=== PATIENT | female | born 1990 | race Hispanic/Latino ===

== ENCOUNTER → 2021-01-12 | Outpatient (CLI) | payer OTHER | END | disposition home or self-care (01) | LOC: OIH 09:29 | PROVIDERS: ATTEND Family Medicine | DX: M17.11 Unilateral primary osteoarthritis, right knee (principal) | CPT/HCPCS: 73560 ==

== ENCOUNTER 2021-09-19 11:57 | Emergency (ER) | payer OTHER ==
[~2021-09-19] VITALS: Ht 157.5 cm; Wt 109.8 kg
[2021-09-19 13:22] VITALS: BP 160/86
[2021-09-19 13:27] LABS: BASOPHILS % (AUTO) 0.4 % (0.0-5.0); HEMATOCRIT 41.2 % (36-48); LYMPHOCYTES % (AUTO) 25.4 % (21.0-51.0); MEAN CORPUSCULAR HEMOGLOBIN 26.5 pg (27.0-33.0); MEAN CORPUSCULAR HGB CONC 31.3 g/dL (32.0-36.0); MEAN CORPUSCULAR VOLUME 84.8 fL (79-99); MONOCYTES % (AUTO) 5.2 % (3.0-13.0); NEUTROPHILS % (AUTO) 67.7 % (40.0-77.0); PLATELET COUNT (AUTO) 351 K/uL (130-400); RED BLOOD CELL COUNT(AUTO) 4.86 MIL/uL (4.00-5.50); RED CELL DISTRIBUTION WIDTH 15.3 % (11.0-15.5); WHITE BLOOD COUNT (AUTO) 11.2 K/uL (4.8-10.8)
[2021-09-19 13:38] LABS: CREATININE 0.6 mg/dL (0.5-1.5); POTASSIUM 3.9 mmol/L (3.5-5.1)
[2021-09-19 13:39] LABS: APPEARANCE,URINE Clear (CLEAR); BILIRUBIN,URINE Moderate (NEGATIVE); COLOR,URINE Dark Yellow (YELLOW); GLUCOSE, URINE (UA) Negative (NEGATIVE); KETONES,URINE >=160 mg/dL (NEGATIVE); LEUKOCYTE ESTERASE ,URINE Trace (NEGATIVE); NITRATE,URINE Negative (NEGATIVE); OCCULT BLOOD,URINE Negative (NEGATIVE); PROTEIN,URINE POS 1+ mg/dL (NEGATIVE)
[2021-09-19 13:42] LABS: ALBUMIN 3.7 g/dL (3.5-5.0); BILIRUBIN,TOTAL 0.5 mg/dL (0.2-1.0); CRP QUANTITATIVE 39.4 mg/L (0.00-9.0); TOTAL PROTEIN, SERUM 8.4 g/dL (6.0-8.3)
[2021-09-19 13:43] LABS: HCG,QUAL RESULT NEGATIVE (NEGATIVE)
[2021-09-19 13:46] LABS: BACTERIA,URINE Rare /HPF (None Seen); MUCUS,URINE Few LPF (None Seen); RBC,URINE 0-1 /HPF (0-1); SQUAMOUS EPITHELIAL CELL,UR Rare /HPF (0-2)
[2021-09-19] MEDS ORDERED: CEFTRIAXONE 1G VIAL IM ONE (14:00)
[2021-09-19] MEDS ORDERED: CEPH500B PO (15:52)
[2021-09-19] MEDS ORDERED: GABA300C PO (15:52)
== END 2021-09-19 16:04 | disposition home or self-care (01) ==
LOC: EDH 11:57
DX: N39.0 Urinary tract infection, site not specified (principal); M54.10 Radiculopathy, site unspecified; E66.01 Morbid (severe) obesity due to excess calories; Z90.49 Acquired absence of other specified parts of digestive tract; Z68.41 Body mass index [BMI] 40.0-44.9, adult
CPT/HCPCS: 36415; 72100; 80053; 81001; 81025; 85025; 86140; 87088; 96372; 99284; J0696

== ENCOUNTER 2024-01-10 12:24 | Emergency (ER) | payer OTHER ==
[~2024-01-10] VITALS: Ht 154.9 cm; Wt 80.7 kg
[~2024-01-10 12:24] MED LIST: CEPH500B PO; GABA300C PO
[2024-01-10 13:34] VITALS: BP 141/98; PULSE 61; RESP 18; TEMP 99; O2SAT 98
[2024-01-10] MEDS: NEOMY SULF/BACITRA/POLYMYXIN B 1 EACH PACKET TP ONE (13:36)
[2024-01-10] MEDS: acetaMINOPHEN 500 MG TABLET PO ONE (13:37)
[2024-01-10] MEDS: teTANUS/diphthERIA TOXOID [ADULT] 0.5 ML VIAL IM ONE (13:39)
== END 2024-01-10 13:52 | disposition home or self-care (01) ==
LOC: EDH 12:24
DX: S61.102A Unspecified open wound of left thumb with damage to nail, initial encounter (principal); Z90.49 Acquired absence of other specified parts of digestive tract; Z98.84 Bariatric surgery status; Z98.890 Other specified postprocedural states; W26.0XXA Contact with knife, initial encounter; Y93.G9 Activity, other involving cooking and grilling; Y92.89 Other specified places as the place of occurrence of the external cause; Y99.8 Other external cause status
CPT/HCPCS: 90471; 90714